=== PATIENT | female | born 1940 | race Caucasian/White ===

== ENCOUNTER 2019-02-03 14:38 | Inpatient (IN) ==
[2019-02-03] MEDS ORDERED: Ondansetron 4 MG/2 ML VIAL IVP ONE (15:43)
[2019-02-03] MEDS ORDERED: 0.9 % Sodium Chloride 1,000 ML IVC ONE (15:43)
[2019-02-03] MEDS ORDERED: Lisinopril 20 MG TABLET PO STA (16:11)
[2019-02-03 16:13] LABS: Basophils # 0.1 K/mcL (0.0-0.2); Basophils % 0.3 %; Eosinophils # 0.2 K/mcL (0.0-0.6); Eosinophils % 1.2 %; Hemoglobin 10.9 g/dL (11.5-15.4); Immature Granulocytes % 1.8 % (0-4); Lymphocytes # 2.2 K/mcL (0.6-4.6); Lymphocytes % 12.7 %; Mean Corpuscular HGB Conc 32.1 g/dL (31.6-35.5); Mean Corpuscular Hemoglobin 30.5 pg (28.0-33.3); Mean Corpuscular Volume 95.2 fL (83.0-100.0); Mean Platelet Volume 10.1 fL (9.4-12.4); Monocytes # 2.1 K/mcL (0.0-1.3); Monocytes % 12.5 %; Neutrophils # 12.1 K/mcL (1.6-8.9); Platelet Count 280 K/mcL (140-400); Red Blood Count 3.57 M/mcL (3.82-4.97); Segmented Neutrophils % 71.5 %; White Blood Count 16.9 K/mcL (4.3-11.1)
[2019-02-03 16:15] LABS: Bilirubin,Urine Negative (Negative); Blood,Urine Trace (Negative); Clarity,Urine Cloudy (Clear); Color,Urine Yellow (Yellow); Glucose,Urine (UA) Normal (Normal); Ketones,Urine Negative (Negative); Leukocyte Esterase,Urine Small (Negative); Nitrite,Urine Negative (Negative); PH,Urine 5.5 pH Units (5.0-8.0); Protein,Urine >=300 mg/dL (Neg-Trace); Specific Gravity,Urine 1.012 (1.010-1.025); Urobilinogen,Urine Normal (Normal)
[2019-02-03 16:17] LABS: Bacteria,Urine None Seen per hpf (None-Few); Hyaline Casts,Urine None Seen per lpf (None-Few); Squamous Epithelial Cell,Urine Many per lpf (None-Few); WBC,Urine 30-50 per hpf (0-3)
[2019-02-03 16:26] LABS: INR 1.1; Prothrombin Time 12.5 Seconds (9.4-12.1)
[2019-02-03 16:43] LABS: Albumin/Globulin Ratio 0.9 (1.1-2.2); Bilirubin,Direct 0.2 mg/dL (0.0-0.2); Bilirubin,Indirect 0.5 mg/dL (0.0-1.2); Bilirubin,Total 0.7 mg/dL (0.3-1.0); Calcium 8.6 mg/dL (8.6-10.3); Globulin 3.5 g/dL (2.4-3.5); Potassium 5.6 mEq/L (3.5-5.1); Total Protein 6.5 g/dL (6.4-8.9); Troponin I 0.05 ng/mL (< 0.04)
[2019-02-03] MEDS ORDERED: cefTRIAXone 1,000 MG in Water for inj. (sterile) 10 ML IVP ONE (17:02)
[2019-02-03] MEDS ORDERED: Naloxone 0.4 MG/ML INJ IVP PRN (17:36)
[2019-02-03] MEDS ORDERED: *HR* Dextrose 50 % in Water (Syg) 50 ML SYRINGE IVP PRN (17:55)
[2019-02-03] MEDS ORDERED: D5% in Water 1,000 ML IVC PRN (17:55)
[2019-02-03] MEDS ORDERED: Dextrose Gel 15 GM/37.5 ML TUBE PO PRN ×2 (17:55)
[2019-02-03] MEDS ORDERED: *HR* LORazepam 0.5 MG TABLET PO PRN (18:06)
[2019-02-03] MEDS: Insulin DETEMIR 100 UNIT/ML X5UNITS SQ SCH (20:44)
[2019-02-03] MEDS: cloNIDine HCl 0.1 MG TABLET PO SCH (20:45)
[2019-02-03] MEDS: Sucralfate 1 GM TABLET PO SCH (20:45)
[2019-02-03] MEDS ORDERED: Insulin LISPRO 300 UNITS/3 ML VIAL SQ SCH (21:00)
[2019-02-04] MEDS: *HR* Heparin 5,000 UNIT/ML VIAL SQ SCH ×3 (01:00→16:47)
[2019-02-04 05:40] LABS: Basophils # 0.1 K/mcL (0.0-0.2); Basophils % 0.4 %; Eosinophils # 0.4 K/mcL (0.0-0.6); Eosinophils % 2.7 %; Hematocrit 31.4 % (35.3-44.9); Hemoglobin 10.2 g/dL (11.5-15.4); Immature Granulocytes % 1.9 % (0-4); Lymphocytes # 2.7 K/mcL (0.6-4.6); Lymphocytes % 20.2 %; Mean Corpuscular HGB Conc 32.5 g/dL (31.6-35.5); Mean Corpuscular Hemoglobin 30.5 pg (28.0-33.3); Mean Platelet Volume 10.5 fL (9.4-12.4); Monocytes # 1.8 K/mcL (0.0-1.3); Monocytes % 13.1 %; Neutrophils # 8.3 K/mcL (1.6-8.9); Platelet Count 258 K/mcL (140-400); Red Blood Count 3.34 M/mcL (3.82-4.97); Red Cell Distribution Width 15.1 % (11.5-14.5); Segmented Neutrophils % 61.7 %; White Blood Count 13.5 K/mcL (4.3-11.1)
[2019-02-04 05:59] LABS: Calcium 8.2 mg/dL (8.6-10.3); Potassium 5.9 mEq/L (3.5-5.1)
[2019-02-04] MEDS ORDERED: cefTRIAXone 2,000 MG in Water for inj. (sterile) 20 ML IVP SCH (09:00)
[2019-02-04] MEDS: Insulin LISPRO 300 UNITS/3 ML VIAL SQ SCH ×5 (10:14→16:48)
[2019-02-04] MEDS: Sucralfate 1 GM TABLET PO SCH ×4 (10:14→22:15)
[2019-02-04] MEDS: amLODIPine 5 MG TABLET PO SCH (10:15)
[2019-02-04] MEDS: Multivit/Ca/Min/Fe/FA 1 TAB TABLET PO SCH (10:15)
[2019-02-04] MEDS: cloNIDine HCl 0.1 MG TABLET PO SCH ×2 (10:16→22:16)
[2019-02-04] MEDS: Aspirin Enteric Coated 81 MG Tablet PO SCH (10:16)
[2019-02-04] MEDS: cefTRIAXone 2,000 MG in 0.9 % Sodium Chloride Mini Bag 100 ML IVPB SCH (10:16)
[2019-02-04] MEDS ORDERED: MOM Conc 10 ML UD.LIQ PO PRN (10:31)
[2019-02-04] MEDS: *HR* OxyCODONE Immed Rel 5 MG TABLET PO PRN ×2 (18:01→22:16)
[2019-02-04] MEDS: Insulin DETEMIR 100 UNIT/ML X5UNITS SQ SCH (22:17)
[2019-02-05] MEDS: *HR* Heparin 5,000 UNIT/ML VIAL SQ SCH ×4 (01:49→23:19)
[2019-02-05 05:18] LABS: Basophils % 0.5 %; Eosinophils % 2.9 %; Hematocrit 32.6 % (35.3-44.9); Hemoglobin 10.4 g/dL (11.5-15.4); Immature Granulocytes % 2.4 % (0-4); Lymphocytes % 14.1 %; Mean Corpuscular HGB Conc 31.9 g/dL (31.6-35.5); Mean Corpuscular Hemoglobin 30.7 pg (28.0-33.3); Mean Corpuscular Volume 96.2 fL (83.0-100.0); Mean Platelet Volume 10.1 fL (9.4-12.4); Monocytes % 12.6 %; Platelet Count 240 K/mcL (140-400); Red Blood Count 3.39 M/mcL (3.82-4.97); Red Cell Distribution Width 15.3 % (11.5-14.5); Segmented Neutrophils % 67.5 %
[2019-02-05 05:19] LABS: Basophils # 0.1 K/mcL (0.0-0.2); Eosinophils # 0.4 K/mcL (0.0-0.6); Lymphocytes # 1.8 K/mcL (0.6-4.6); Monocytes # 1.6 K/mcL (0.0-1.3); Neutrophils # 8.8 K/mcL (1.6-8.9)
[2019-02-05 05:31] LABS: Complement C3 123 mg/dL (87-200)
[2019-02-05 05:32] LABS: Albumin 2.7 g/dL (3.5-5.7); Magnesium 2.4 mg/dL (1.6-2.6); Uric Acid 15.8 mg/dL (2.3-7.6)
[2019-02-05 05:34] LABS: Calcium 8.3 mg/dL (8.6-10.3); Phosphorous 4.5 mg/dL (2.7-4.5); Potassium 5.5 mEq/L (3.5-5.1)
[2019-02-05] MEDS: Insulin LISPRO 300 UNITS/3 ML VIAL SQ SCH ×5 (07:44→15:54)
[2019-02-05] MEDS: Sennosides 8.6 MG TABLET PO SCH (08:46)
[2019-02-05] MEDS: cloNIDine HCl 0.1 MG TABLET PO SCH ×3 (08:46→21:31)
[2019-02-05] MEDS: amLODIPine 5 MG TABLET PO SCH (08:47)
[2019-02-05] MEDS: Multivit/Ca/Min/Fe/FA 1 TAB TABLET PO SCH (08:47)
[2019-02-05] MEDS: Aspirin Enteric Coated 81 MG Tablet PO SCH (08:47)
[2019-02-05] MEDS: Sucralfate 1 GM TABLET PO SCH (08:48)
[2019-02-05] MEDS: cefTRIAXone 2,000 MG in 0.9 % Sodium Chloride Mini Bag 100 ML IVPB SCH (08:48)
[2019-02-05] MEDS: Ondansetron 4 MG/2 ML VIAL IVP PRN ×2 (09:55→17:09)
[2019-02-05] MEDS: Albumin 25% 25gram/100mL 25 GM/100 ML IV.SOLN IVPB SCH ×2 (13:02→18:25)
[2019-02-05] MEDS: Furosemide 40 MG/4 ML VIAL IVP SCH ×2 (15:59→21:33)
[2019-02-05] MEDS: Acetaminophen 325 MG TABLET PO PRN (20:05)
[2019-02-05] MEDS: Insulin DETEMIR 100 UNIT/ML X5UNITS SQ SCH (21:34)
[2019-02-05] MEDS: *HR* OxyCODONE Immed Rel 5 MG TABLET PO PRN (23:19)
[2019-02-06 04:42] LABS: Basophils % 0.2 %; Eosinophils # 0.2 K/mcL (0.0-0.6); Hematocrit 27.9 % (35.3-44.9); Immature Granulocytes % 1.5 % (0-4); Lymphocytes # 2.4 K/mcL (0.6-4.6); Lymphocytes % 19.5 %; Mean Corpuscular HGB Conc 31.5 g/dL (31.6-35.5); Mean Corpuscular Hemoglobin 30.3 pg (28.0-33.3); Mean Corpuscular Volume 96.2 fL (83.0-100.0); Mean Platelet Volume 9.9 fL (9.4-12.4); Monocytes # 1.6 K/mcL (0.0-1.3); Monocytes % 13.3 %; Neutrophils # 7.8 K/mcL (1.6-8.9); Platelet Count 217 K/mcL (140-400); Red Cell Distribution Width 15.1 % (11.5-14.5); Segmented Neutrophils % 63.5 %; White Blood Count 12.2 K/mcL (4.3-11.1)
[2019-02-06 04:43] LABS: Hemoglobin 8.8 g/dL (11.5-15.4)
[2019-02-06 05:04] LABS: Calcium 8.4 mg/dL (8.6-10.3); Potassium 5.1 mEq/L (3.5-5.1)
[2019-02-06] MEDS: Albumin 25% 25gram/100mL 25 GM/100 ML IV.SOLN IVPB SCH ×2 (05:32→16:31)
[2019-02-06] MEDS: *HR* OxyCODONE Immed Rel 5 MG TABLET PO PRN ×3 (05:33→23:40)
[2019-02-06] MEDS: Insulin LISPRO 300 UNITS/3 ML VIAL SQ SCH ×5 (07:24→16:33)
[2019-02-06] MEDS: amLODIPine 5 MG TABLET PO SCH (08:34)
[2019-02-06] MEDS: cefTRIAXone 2,000 MG in 0.9 % Sodium Chloride Mini Bag 100 ML IVPB SCH (08:35)
[2019-02-06] MEDS: cloNIDine HCl 0.1 MG TABLET PO SCH ×2 (08:37→21:21)
[2019-02-06] MEDS: Aspirin Enteric Coated 81 MG Tablet PO SCH (08:37)
[2019-02-06] MEDS: Sennosides 8.6 MG TABLET PO SCH (08:37)
[2019-02-06] MEDS: Multivit/Ca/Min/Fe/FA 1 TAB TABLET PO SCH (08:37)
[2019-02-06] MEDS: Ondansetron 4 MG/2 ML VIAL IVP PRN ×3 (08:37→23:39)
[2019-02-06] MEDS: *HR* Heparin 5,000 UNIT/ML VIAL SQ SCH ×3 (08:37→23:38)
[2019-02-06] MEDS: Furosemide 40 MG/4 ML VIAL IVP SCH ×2 (08:38→21:21)
[2019-02-06] MEDS ORDERED: NON-FORMULARY MEDICATION 1 EACH EACH (Amlodipine Besylate 10 MG) PO SCH (09:00)
[2019-02-06] MEDS: Acetaminophen 325 MG TABLET PO PRN (11:46)
[2019-02-06] MEDS: Azithromycin 500 MG in 0.9 % Sodium Chloride 250 ML IVPB SCH (11:46)
[2019-02-06] MEDS ORDERED: Promethazine 12.5 MG in 0.9 % Sodium Chloride 50 ML IVPB PRN (13:03)
[2019-02-06] MEDS ORDERED: Methyl Salicylate/Menthol 57 APPL/57 GM TUBE TP PRN (13:03)
[2019-02-06] MEDS: Ipratropium/Albuterol Neb 3 ML IH PRN ×2 (15:52→22:20)
[2019-02-06] MEDS ORDERED: Albuterol 2.5 MG/3 ML NEBULIZER IH PRN (17:23)
[2019-02-07] MEDS: Albumin 25% 25gram/100mL 25 GM/100 ML IV.SOLN IVPB SCH (05:21)
[2019-02-07] MEDS: *HR* OxyCODONE Immed Rel 5 MG TABLET PO PRN ×3 (05:22→20:20)
[2019-02-07] MEDS: Ipratropium/Albuterol Neb 3 ML IH PRN ×3 (07:37→20:01)
[2019-02-07 07:44] LABS: Calcium 9.3 mg/dL (8.6-10.3); Potassium 5.2 mEq/L (3.5-5.1)
[2019-02-07 07:45] LABS: Basophils % 0.2 %; Eosinophils # 0.1 K/mcL (0.0-0.6); Eosinophils % 0.4 %; Hematocrit 28.7 % (35.3-44.9); Hemoglobin 9.2 g/dL (11.5-15.4); Immature Granulocytes % 1.9 % (0-4); Lymphocytes # 1.2 K/mcL (0.6-4.6); Lymphocytes % 7.2 %; Mean Corpuscular HGB Conc 32.1 g/dL (31.6-35.5); Mean Corpuscular Hemoglobin 30.5 pg (28.0-33.3); Mean Platelet Volume 10.4 fL (9.4-12.4); Monocytes # 1.8 K/mcL (0.0-1.3); Monocytes % 10.5 %; Neutrophils # 13.6 K/mcL (1.6-8.9); Platelet Count 257 K/mcL (140-400); Red Blood Count 3.02 M/mcL (3.82-4.97); Red Cell Distribution Width 15.4 % (11.5-14.5); Segmented Neutrophils % 79.8 %
[2019-02-07] MEDS ORDERED: Furosemide 20 MG/2 ML VIAL IVP ONE (07:47)
[2019-02-07] MEDS: Insulin LISPRO 300 UNITS/3 ML VIAL SQ SCH ×5 (08:05→16:49)
[2019-02-07] MEDS ORDERED: 0.9 % Sodium Chloride 250 ML IVC PRN (08:06)
[2019-02-07] MEDS: amLODIPine 5 MG TABLET PO SCH (08:07)
[2019-02-07] MEDS: Multivit/Ca/Min/Fe/FA 1 TAB TABLET PO SCH (08:07)
[2019-02-07] MEDS: MethylPREDNISolone 40 MG/ML VIAL IVP SCH ×3 (08:07→23:53)
[2019-02-07] MEDS: *HR* Heparin 5,000 UNIT/ML VIAL SQ SCH ×3 (08:08→23:53)
[2019-02-07] MEDS: cloNIDine HCl 0.1 MG TABLET PO SCH ×2 (08:08→20:17)
[2019-02-07] MEDS: Aspirin Enteric Coated 81 MG Tablet PO SCH (08:08)
[2019-02-07] MEDS: Furosemide 40 MG/4 ML VIAL IVP SCH (08:09)
[2019-02-07] MEDS: cefTRIAXone 2,000 MG in 0.9 % Sodium Chloride Mini Bag 100 ML IVPB SCH (08:10)
[2019-02-07] MEDS ORDERED: 0.9 % Sodium Chloride 1,000 ML PRIME SCH (08:15)
[2019-02-07] MEDS: Sennosides 8.6 MG TABLET PO SCH (08:18)
[2019-02-07] MEDS ORDERED: Heparin 1,000 UNITS/500 mL 500 ML ONE (09:12)
[2019-02-07] MEDS ORDERED: *HR* Heparin 5,000 UNIT/ML VIAL ONE (09:27)
[2019-02-07 09:47] LABS: ANA IgG by ELISA NONE DETECTED (None Detected)
[2019-02-07 14:07] LABS: Hepatitis B Surface Antigen Nonreactive (Nonreactive)
[2019-02-07] MEDS: Azithromycin 500 MG in 0.9 % Sodium Chloride 250 ML IVPB SCH (15:14)
[2019-02-07] MEDS: Acetaminophen 325 MG TABLET PO PRN (18:57)
[2019-02-07] MEDS ORDERED: Insulin DETEMIR 100 UNIT/ML X5UNITS SQ SCH (21:00)
[2019-02-07 22:30] LABS: Kappa Qnt Free Light Chains 8.63 mg/dL (0.33-1.94); Lambda Qnt Free Light Chains 11.7 mg/dL (0.57-2.63)
[2019-02-07 23:42] LABS: Hepatitis B Core IgM Nonreactive (Nonreactive)
[2019-02-08] MEDS: *HR* OxyCODONE Immed Rel 5 MG TABLET PO PRN (02:30)
[2019-02-08 05:59] LABS: Basophils % 0.1 %; Eosinophils % 0.1 %; Hematocrit 27.2 % (35.3-44.9); Immature Granulocytes % 1.5 % (0-4); Lymphocytes # 1.3 K/mcL (0.6-4.6); Lymphocytes % 7.3 %; Mean Corpuscular HGB Conc 33.1 g/dL (31.6-35.5); Mean Corpuscular Hemoglobin 30.8 pg (28.0-33.3); Mean Corpuscular Volume 93.2 fL (83.0-100.0); Mean Platelet Volume 10.4 fL (9.4-12.4); Monocytes # 1.1 K/mcL (0.0-1.3); Monocytes % 5.9 %; Neutrophils # 15.5 K/mcL (1.6-8.9); Platelet Count 192 K/mcL (140-400); Red Blood Count 2.92 M/mcL (3.82-4.97); Red Cell Distribution Width 15.7 % (11.5-14.5); Segmented Neutrophils % 85.1 %; White Blood Count 18.2 K/mcL (4.3-11.1)
[2019-02-08 06:17] LABS: Potassium 4.9 mEq/L (3.5-5.1)
[2019-02-08] MEDS ORDERED: 0.9 % Sodium Chloride 250 ML IVC PRN (06:38)
[2019-02-08] MEDS: *HR* Heparin 5,000 UNIT/ML VIAL SQ SCH ×2 (08:56→17:29)
[2019-02-08] MEDS: Insulin LISPRO 300 UNITS/3 ML VIAL SQ SCH ×5 (08:56→18:02)
[2019-02-08] MEDS: MethylPREDNISolone 40 MG/ML VIAL IVP SCH ×2 (08:56→17:29)
[2019-02-08] MEDS ORDERED: *HR* Heparin 10,000 UNIT/10 ML VIAL IV PRN (10:05)
[2019-02-08] MEDS: amLODIPine 5 MG TABLET PO SCH (10:11)
[2019-02-08] MEDS: Sennosides 8.6 MG TABLET PO SCH (10:11)
[2019-02-08] MEDS: cloNIDine HCl 0.1 MG TABLET PO SCH ×2 (10:11→20:00)
[2019-02-08] MEDS: Multivit/Ca/Min/Fe/FA 1 TAB TABLET PO SCH (10:11)
[2019-02-08] MEDS: Aspirin Enteric Coated 81 MG Tablet PO SCH (10:12)
[2019-02-08 12:59] LABS: Serine Protease-3 Antibody 0 AU/mL (0-19)
[2019-02-08] MEDS: Furosemide 40 MG TABLET PO SCH (13:35)
[2019-02-08] MEDS: cefTRIAXone 2,000 MG in 0.9 % Sodium Chloride Mini Bag 100 ML IVPB SCH (13:37)
[2019-02-08] MEDS: Azithromycin 500 MG in 0.9 % Sodium Chloride 250 ML IVPB SCH (14:52)
[2019-02-08 14:59] LABS: Alpha 2 Globulin (PEP) 1.04 g/dL (0.48-1.05); Beta Globulin (PEP) 0.64 g/dL (0.48-1.10)
[2019-02-08 15:01] LABS: IFE Reflexed NOT DONE
[2019-02-08] MEDS: *HR* LORazepam Oral Conc 2 MG/ML SL PRN (16:01)
[2019-02-08] MEDS: Insulin DETEMIR 100 UNIT/ML X5UNITS SQ SCH (20:01)
[2019-02-09] MEDS: *HR* Heparin 5,000 UNIT/ML VIAL SQ SCH ×4 (00:11→23:02)
[2019-02-09] MEDS: MethylPREDNISolone 40 MG/ML VIAL IVP SCH ×3 (00:11→17:05)
[2019-02-09] MEDS: Vicks Vaporub Oint 50 GM PACKAGE TP PRN ×2 (05:13→14:18)
[2019-02-09] MEDS ORDERED: 0.9 % Sodium Chloride 250 ML IVC PRN (07:43)
[2019-02-09] MEDS: amLODIPine 5 MG TABLET PO SCH (08:06)
[2019-02-09] MEDS: cloNIDine HCl 0.1 MG TABLET PO SCH ×2 (08:06→21:05)
[2019-02-09] MEDS: Aspirin Enteric Coated 81 MG Tablet PO SCH (08:06)
[2019-02-09] MEDS: Furosemide 40 MG TABLET PO SCH (08:06)
[2019-02-09] MEDS: cefTRIAXone 2,000 MG in 0.9 % Sodium Chloride Mini Bag 100 ML IVPB SCH (08:08)
[2019-02-09] MEDS: Multivit/Ca/Min/Fe/FA 1 TAB TABLET PO SCH (08:09)
[2019-02-09] MEDS: *HR* LORazepam Oral Conc 2 MG/ML SL PRN (08:10)
[2019-02-09 08:33] LABS: ABG Base Excess 6 mEq/L (-2 to 3); ABG HCO3 31 mEq/L (21-27); ABG Oxygen Saturation 90 % (95-98); ABG PCO2 50 mmHg (35-45); ABG PH 7.41 pH Units (7.32-7.45); ABG PO2 59 mmHg (85-104); ABG TCO2 33 mEq/L (20-26)
[2019-02-09] MEDS: Insulin LISPRO 300 UNITS/3 ML VIAL SQ SCH ×5 (08:41→17:06)
[2019-02-09] MEDS ORDERED: Oxymetazoline Nasal SPRAY BOTTLE NS PRN (08:43)
[2019-02-09] MEDS ORDERED: Sennosides 8.6 MG TABLET PO SCH (09:00)
[2019-02-09 09:24] LABS: Basophils % 0.1 %; Hematocrit 25.7 % (35.3-44.9); Hemoglobin 8.1 g/dL (11.5-15.4); Immature Granulocytes % 1.7 % (0-4); Lymphocytes # 1.9 K/mcL (0.6-4.6); Lymphocytes % 8.7 %; Mean Corpuscular HGB Conc 31.5 g/dL (31.6-35.5); Mean Corpuscular Hemoglobin 30.6 pg (28.0-33.3); Mean Platelet Volume 10.2 fL (9.4-12.4); Monocytes # 1.7 K/mcL (0.0-1.3); Monocytes % 7.8 %; Neutrophils # 17.5 K/mcL (1.6-8.9); Platelet Count 202 K/mcL (140-400); Red Blood Count 2.65 M/mcL (3.82-4.97); Red Cell Distribution Width 15.9 % (11.5-14.5); Segmented Neutrophils % 81.7 %; White Blood Count 21.4 K/mcL (4.3-11.1)
[2019-02-09 09:43] LABS: Calcium 8.9 mg/dL (8.6-10.3); Potassium 4.4 mEq/L (3.5-5.1)
[2019-02-09] MEDS ORDERED: *HR* Heparin 10,000 UNIT/10 ML VIAL IV PRN (11:58)
[2019-02-09] MEDS ORDERED: Oxymetazoline Nasal SPRAY BOTTLE NS SCH (12:00)
[2019-02-09] MEDS ORDERED: *HR* Heparin 5,000 UNIT/ML VIAL ONE (12:41)
[2019-02-09] MEDS: Azithromycin 500 MG in 0.9 % Sodium Chloride 250 ML IVPB SCH (13:27)
[2019-02-09] MEDS ORDERED: Saline Nasal Spray 44 ML BOTTLE NS PRN (16:21)
[2019-02-09] MEDS: Ipratropium/Albuterol Neb 3 ML IH SCH ×2 (17:24→21:50)
[2019-02-09] MEDS: Sennosides 8.6 MG TABLET PO SCH (21:05)
[2019-02-09] MEDS: Insulin DETEMIR 100 UNIT/ML X5UNITS SQ SCH (22:56)
[2019-02-09] MEDS: Acetaminophen 325 MG TABLET PO PRN (23:22)
[2019-02-10 01:55] LABS: Creatinine,Urine 121 mg/dL; Microalbumin,Urine > 1350 mg/L; Protein/Creatinine Ratio,Urine 21.38 mg/mg (0.00-0.20); Sodium, Urine 18.2 mEq/L
[2019-02-10 02:00] LABS: Basophils % 0.1 %; Eosinophils % 0.1 %; Hematocrit 24.8 % (35.3-44.9); Hemoglobin 8.1 g/dL (11.5-15.4); Lymphocytes # 1.6 K/mcL (0.6-4.6); Lymphocytes % 9.1 %; Mean Corpuscular HGB Conc 32.7 g/dL (31.6-35.5); Mean Corpuscular Hemoglobin 30.8 pg (28.0-33.3); Mean Corpuscular Volume 94.3 fL (83.0-100.0); Mean Platelet Volume 9.9 fL (9.4-12.4); Monocytes # 1.5 K/mcL (0.0-1.3); Monocytes % 8.6 %; Neutrophils # 14.2 K/mcL (1.6-8.9); Platelet Count 189 K/mcL (140-400); Red Blood Count 2.63 M/mcL (3.82-4.97); Red Cell Distribution Width 15.8 % (11.5-14.5); Segmented Neutrophils % 80.1 %; White Blood Count 17.7 K/mcL (4.3-11.1)
[2019-02-10 02:18] LABS: Calcium 8.7 mg/dL (8.6-10.3); Potassium 4.2 mEq/L (3.5-5.1)
[2019-02-10] MEDS ORDERED: Haloperidol Lactate 5 MG/ML VIAL IVP ONE (02:56)
[2019-02-10] MEDS ORDERED: *HR* Promethazine 25 MG/ML VIAL IVP ONE (02:57)
[2019-02-10 03:07] LABS: ABG Base Excess 6 mEq/L (-2 to 3); ABG HCO3 32 mEq/L (21-27); ABG Oxygen Saturation 95 % (95-98); ABG PCO2 48 mmHg (35-45); ABG PH 7.43 pH Units (7.32-7.45); ABG PO2 75 mmHg (85-104); ABG TCO2 33 mEq/L (20-26)
[2019-02-10] MEDS: Ipratropium/Albuterol Neb 3 ML IH SCH ×3 (04:08→16:22)
[2019-02-10] MEDS: MethylPREDNISolone 40 MG/ML VIAL IVP SCH (05:35)
[2019-02-10] MEDS ORDERED: 0.9 % Sodium Chloride 250 ML IVC PRN (07:28)
[2019-02-10] MEDS: Insulin LISPRO 300 UNITS/3 ML VIAL SQ SCH ×2 (08:31→09:31)
[2019-02-10] MEDS: *HR* Heparin 5,000 UNIT/ML VIAL SQ SCH (08:59)
[2019-02-10] MEDS: *HR* LORazepam Oral Conc 2 MG/ML SL PRN (10:16)
[2019-02-10] MEDS: Azithromycin 500 MG in 0.9 % Sodium Chloride 250 ML IVPB SCH (11:05)
[2019-02-10] MEDS: amLODIPine 5 MG TABLET PO SCH (11:05)
[2019-02-10] MEDS: cloNIDine HCl 0.1 MG TABLET PO SCH ×2 (11:05→20:34)
[2019-02-10] MEDS: Aspirin Enteric Coated 81 MG Tablet PO SCH (11:05)
[2019-02-10] MEDS: Sennosides 8.6 MG TABLET PO SCH ×2 (11:05→20:34)
[2019-02-10] MEDS: Furosemide 40 MG TABLET PO SCH (11:05)
[2019-02-10] MEDS: *HR* FentaNYL (PF) 100 MCG/2 ML VIAL IVP PRN ×3 (12:09→17:04)
[2019-02-10] MEDS: Ondansetron 4 MG/2 ML VIAL IVP PRN (12:43)
[2019-02-10] MEDS ORDERED: Haloperidol Lactate 5 MG/ML VIAL IVP PRN (14:47)
[2019-02-10] MEDS ORDERED: Bisacodyl 10 MG RECTAL SUPPOSITORY RC PRN (15:49)
[2019-02-10] MEDS ORDERED: Albuterol 2.5 MG/3 ML NEBULIZER IH PRN (16:42)
[2019-02-10] MEDS ORDERED: GI Cocktail 40 ML EACH PO ONE (18:22)
[2019-02-10] MEDS: *HR* LORazepam 2 MG/ML VIAL IVP PRN ×2 (18:48→20:42)
[2019-02-10] MEDS: Acetaminophen 325 MG TABLET PO PRN (20:34)
[2019-02-11] MEDS: *HR* LORazepam 2 MG/ML VIAL IVP PRN ×5 (00:06→09:00)
[2019-02-11] MEDS: *HR* FentaNYL (PF) 100 MCG/2 ML VIAL IVP PRN ×5 (00:06→09:20)
[2019-02-11 05:37] LABS: Basophils % 0.2 %; Eosinophils # 0.3 K/mcL (0.0-0.6); Eosinophils % 1.4 %; Hematocrit 26.8 % (35.3-44.9); Hemoglobin 8.6 g/dL (11.5-15.4); Immature Granulocytes % 4.3 % (0-4); Lymphocytes % 10.7 %; Mean Corpuscular HGB Conc 32.1 g/dL (31.6-35.5); Mean Corpuscular Hemoglobin 30.8 pg (28.0-33.3); Mean Corpuscular Volume 96.1 fL (83.0-100.0); Mean Platelet Volume 10.3 fL (9.4-12.4); Monocytes # 2.1 K/mcL (0.0-1.3); Monocytes % 10.9 %; Neutrophils # 13.7 K/mcL (1.6-8.9); Nucleated Red Blood Cells 0.1 /100 WBC (0); Platelet Count 194 K/mcL (140-400); Red Blood Count 2.79 M/mcL (3.82-4.97); Red Cell Distribution Width 15.9 % (11.5-14.5); Segmented Neutrophils % 72.5 %
[2019-02-11 05:59] LABS: Calcium 9.3 mg/dL (8.6-10.3); Potassium 4.4 mEq/L (3.5-5.1)
[2019-02-11 08:35] VITALS: BP 175/64
[2019-02-11] MEDS: Aspirin Enteric Coated 81 MG Tablet PO SCH (08:54)
[2019-02-11] MEDS: cloNIDine HCl 0.1 MG TABLET PO SCH (09:00)
[2019-02-11] MEDS: Sennosides 8.6 MG TABLET PO SCH (09:00)
[2019-02-11] MEDS: Furosemide 40 MG TABLET PO SCH (09:00)
[2019-02-11] MEDS: amLODIPine 5 MG TABLET PO SCH (09:00)
[2019-02-11] MEDS ORDERED: Haloperidol Oral Conc 10 MG/5 ML UDC PO SCH (12:00)
[2019-02-12 19:26] LABS: Urine Collection Volume RANDOM mL
== END 2019-02-11 12:01 | disposition hospice, inpatient (51) | DRG 682 ==
LOC: 2ANU 14:38 → EMEROOARM 14:38 → SUATTDRO 17:36 → 2ANU 17:58
PROVIDERS: ADMIT Internal Medicine; ATTEND Family Medicine

== ENCOUNTER 2019-02-11 11:18 | Inpatient (IN) ==
[2019-02-11] MEDS ORDERED: Haloperidol Lactate 5 MG/ML VIAL IVP PRN (11:54)
[2019-02-11] MEDS ORDERED: Atropine Sulfate 1% 40 DROP/2 ML BOTTLE SL PRN (11:54)
[2019-02-11] MEDS ORDERED: *HR* LORazepam 2 MG/ML VIAL IVP PRN (11:54)
[2019-02-11] MEDS ORDERED: Ipratropium/Albuterol Neb 3 ML IH PRN (11:54)
[2019-02-11] MEDS ORDERED: Saline Nasal Spray 44 ML BOTTLE NS PRN (12:18)
[2019-02-11] MEDS ORDERED: Vicks Vaporub Oint 50 GM PACKAGE TP PRN (12:20)
[2019-02-11] MEDS: Haloperidol Oral Conc 10 MG/5 ML UDC PO SCH ×3 (12:21→23:51)
[2019-02-11] MEDS ORDERED: Bisacodyl 10 MG RECTAL SUPPOSITORY RC ONE (14:00)
[2019-02-11 19:57] VITALS: BP 181/49
[2019-02-11] MEDS ORDERED: cloNIDine HCl 0.1 MG TABLET PO SCH (21:00)
[2019-02-11] MEDS ORDERED: Sennosides/Docusate Sodium TABLET PO SCH (21:00)
[2019-02-11] MEDS: *HR* FentaNYL (PF) 100 MCG/2 ML VIAL IVP PRN (22:48)
[2019-02-12] MEDS: *HR* FentaNYL (PF) 100 MCG/2 ML VIAL IVP PRN (02:08)
[2019-02-12] MEDS: Haloperidol Oral Conc 10 MG/5 ML UDC PO SCH (06:05)
[2019-02-12] MEDS ORDERED: *HR* LORazepam Oral Conc 2 MG/ML SL PRN (07:17)
[2019-02-12] MEDS ORDERED: Furosemide 40 MG TABLET PO SCH (09:00)
[2019-02-12] MEDS ORDERED: amLODIPine 5 MG TABLET PO SCH (09:00)
[2019-02-12] MEDS ORDERED: Bisacodyl 10 MG RECTAL SUPPOSITORY RC SCH (09:00)
[2019-02-12] MEDS ORDERED: Haloperidol Oral Conc 10 MG/5 ML UDC PO PRN (21:07)
== END 2019-02-12 10:38 | disposition expired | DRG 951 ==
LOC: 2ANU 12:03
PROVIDERS: ADMIT Internal Medicine Hospice and Palliative Medicine; ATTEND Internal Medicine Hospice and Palliative Medicine